=== PATIENT | female | born 1995 | race Hispanic/Latino ===

== ENCOUNTER → 2018-12-12 | Emergency (ER) | payer OTHER, SELFPAY ==
[~2018-12-12] MED LIST: DOCUSATE NA 100 MG CAP PO SCH; FAMOTIDINE 20 MG/2 ML VIAL IV ONE; NA CHLORIDE 0.9% 2,000 ML ONE; PIPER/TAZO/NS 3.375gm 3.375 GM/100 ML BAG ONE; VANCOMYCIN 1 GM/250 ML BAG ONE
--- NOTE | 2018-12-12 11:40 | RAD REPORT ---
EXAM DESCRIPTION: RAD - Chest Single View - 12/12/2018 11:25 am CLINICAL HISTORY: COUGH Chest pain. COMPARISON: CHEST PA AND LAT 2 VIEW dated 09/01/2010 FINDINGS: Portable technique limits examination quality. The lungs are grossly clear. The heart is normal in size. No displaced fractures. IMPRESSION: No acute intrathoracic process suspected.
[2018-12-12 11:58] LABS: Absolute Lymphocytes (CBC) 1.5 K/uL (0.7-4.9); Absolute Monocytes 0.7 K/uL (0.1-1.3); Absolute Neutrophil 6.1 K/uL (1.8-8.0); Basophils % 0.4 % (0-1.3); Eosinophils % 1.2 % (0-4.4); Hematocrit 25.1 % (36.0-45.0); Lymphocytes % 17.8 % (15.3-44.8); MPV 10.9 fL (7.6-11.3); Monocytes % 8.6 % (3.3-12.3); RBC Red Blood Cell Count 2.84 M/uL (3.86-4.86)
[2018-12-12 12:03] LABS: Protime INR 1.08
[2018-12-12 12:17] LABS: ALT/SGPT 21 U/L (12-78); AST/SGOT 19 U/L (15-37); Albumin 2.5 g/dL (3.4-5.0); Alkaline Phosphatase 38 U/L (45-117); BUN Blood Urea Nitrogen 10 mg/dL (7-18); Bicarbonate 25 mmol/L (21-32); Bilirubin Direct 0.2 mg/dL (0-0.2); Bilirubin Total 0.5 mg/dL (0.2-1.0); Glucose Level 92 mg/dL (74-106); Lipase 181 U/L (73-393); Magnesium 1.9 mg/dL (1.8-2.4); NT PRO-BNP 212 pg/mL (<125); Potassium 4.1 mmol/L (3.5-5.1); Protein, Total 5.9 g/dL (6.4-8.2); Sodium Level 142 mmol/L (136-145); Troponin (Emerg Dept Use Only) < 0.02 ng/mL (0.0-0.045)
--- NOTE | 2018-12-12 12:37 | RAD REPORT ---
EXAM DESCRIPTION: CT - Chest Abdomen Pelvis W Cont - 12/12/2018 12:23 pm CLINICAL HISTORY: Chest and abdomen pain. COUGH COMPARISON: Chest Single View dated 12/12/2018; SOFT TISSUE NECK W CONTRAST dated 10/28/2013; CHEST PA AND LAT 2 VIEW dated 09/01/2010 TECHNIQUE: Approximately 100 mL nonionic IV contrast was administered to the patient. All CT scans are performed using dose optimization technique as appropriate and may include automated exposure control or mA/KV adjustment according to patient size. FINDINGS: The lungs are clear.Postsurgical changes are present about the stomach.No pleural or peric ardial effusion.No intrathoracic adenopathy. The liver, spleen, pancreas, adrenal glands and kidneys are within normal limits. No bowel obstruction, free air, free fluid or abscess. Normal appendix. Air in fat stranding seen in the subcutaneous tissues of the abdomen with a drain in place compatible with recent postsurgical sta tus. Postsurgical changes seen involving both rectus abdominus muscles. No pathologic lymphadenopathy in the abdomen or pelvis. A large amount of stool is present in the rectum most compatible with impaction. IMPRESSION: Fecal impaction in the rectum suspected. Postsurgical changes with drain in place involving the subcutaneous an anterior abdominal tissues.
--- NOTE | 2018-12-12 12:53 | ER ---
Nurse's Notes [facility] Name: Arely More Age: 23 yrs Sex: Female : 1995 Arrival Date: 12/12/2018 Time: 10:57 Bed 4 Private MD: Diagnosis: Syncope and collapse-near;Anemia, unspecified-sp abdominoplasty;Constipation Presentation: 12/12 10:50 Presenting complaint: Patient states: had recent tummy tuck/fat transfer to buttocks on iw Thursday, in [place], received a blood transfusion for Hgb of 7, today c/o constipation since the surgery, headache since the surgery, worse today, pt states she had an epidural on Thursday. Transition of care: patient was not received from another setting of care. Onset of symptoms was December 12, 2018. Risk Assessment: Do you want to hurt yourself or someone else? Patient reports no desire to harm self or others. Initial Sepsis Screen: Does the patient meet any 2 criteria? No. Patient's initial sepsis screen is negative. Does the patient have a suspected source of infection? No. Patient's initial sepsis screen is negative. 10:50 Method Of Arrival: EMS: [facility] iw 10:50 Acuity: JEREMY 2 iw 11:11 Care prior to arrival: None. iw Triage Assessment: 17:50 Pain: Also complains of no other associated symptoms. 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 - Social history:: Smoking status: Patient/guardian denies using tobacco. - Family history:: not pertinent. - Ebola Screening: : Patient reports travel to an Ebola-affected area in the 21 days before illness onset. Screenin:46 Abuse screen: Denies threats or abuse. Denies injuries from another. Nutritional iw screening: No deficits noted. Tuberculosis screening: No symptoms or risk factors identified. Fall Risk IV access (20 points). Assessment: 11:28 General: UNABLE TO OBTAIN PIV BY MX NURSES WITH MX ATTEMPTS. MD AWARE AND AT B/S. bp 12:01 General: Appears in no apparent distress. uncomfortable, Behavior is calm, cooperative, jl7 appropriate for age. Pain: Complains of pain in right occipital area Pain does not radiate. Pain currently is 10 out of 10 on a pain scale. Quality of pain is described as throbbing, Pain began 2-3 days ago. Is continuous. Neuro: Level of Consciousness is awake, alert, obeys commands, Oriented to person, place, time. Cardiovascular: Heart tones present Patient's skin is warm and dry. Respiratory: Airway is patent Respiratory effort is even, unlabored, Respiratory pattern is regular, symmetrical, Breath sounds are clear bilaterally. GI: Abdomen is flat, non-distended, Patient currently denies diarrhea, nausea, vomiting. : No signs and/or symptoms were reported regarding the genitourinary system. EENT: No signs and/or symptoms were reported regarding the EENT system. Derm: Skin is dry, Skin is pale, Skin temperature is warm. Musculoskeletal: No signs and/or symptoms reported regarding the musculoskeletal system. 13:00 Reassessment: Patient appears in no apparent distress at this time. Patient and/or jl7 family updated on plan of care and expected duration. Pain level reassessed. Patient is alert/active/playful, equal unlabored respirations, skin warm/dry/pink. 14:53 Reassessment: Pt requesting a stool softner, Dr. Barrow notified, received VO for 100 mg jl7 Colace PO. 17:00 Reassessment: Assisted pt to bathroom, pt reports having a BM at this time. jl7 17:50 Reassessment: discharge instruction written by Dr. Barrow, pt verbalizes understanding, iw pt discharged home, via wheelchair with family, assisted into vehicle with no complications, pt advised to return to Er for worsening symptoms, pt will follow up with PCP this week. Vital Signs: 10:50 BP 61 / 44; Pulse 75; iw 11:01 BP 102 / 50; Pulse 78; Resp 16 S; Pulse Ox 100% on R/A; iw 11:11 BP 95 / 60; Pulse 83; Resp 16 S; Temp 97.8(TE); Pulse Ox 100% ; Weight 85.28 kg; Height iw 5 ft. (152.40 cm); Pain 8/10; 11:45 BP 78 / 43; Pulse 78; Resp 16; Pulse Ox 100% on R/A; iw 11:50 BP 96 / 52; iw 12:30 BP 100 / 52; Pulse 84; Resp 16 S; Pulse Ox 100% on R/A; jl7 13:30 BP 101 / 44; Pulse 74; Resp 16 S; Pulse Ox 100% on R/A; jl7 14:15 BP 100 / 43; Pulse 76; Resp 16 S; Pulse Ox 100% on R/A; jl7 15:00 BP 92 / 42 Supine; Pulse 79; Resp 16 S; Pulse Ox 100% on R/A; jl7 15:03 BP 102 / 59 Sitting; Pulse 86; Resp 16 S; Pulse Ox 100% on R/A; jl7 15:05 BP 101 / 66; Pulse 101; Resp 16 S; Pulse Ox 100% on R/A; jl7 15:45 BP 91 / 42; Pulse 91; Resp 16 S; Pulse Ox 100% on R/A; jl7 11:11 Body Mass Index 36.72 (85.28 kg, 152.40 cm) iw ED Course: 10:57 Patient arrived in ED. iw 10:58 Omi Wong MD is Attending Physician. rudolph 11:02 Charlie Pompa, RN is Primary Nurse. jl7 11:06 Triage completed. iw 11:12 Arm band placed on. iw 11:16 Radiology exam delayed due to lab results not completed at this time. (HCG) mw3 test not completed at this time. 11:26 XRAY Chest (1 view) In Process Unspecified. EDMS 11:45 Inserted saline lock: 20 gauge in left antecubital area, using aseptic technique. Blood iw collected. 12:01 Patient has correct armband on for positive identification. Placed in gown. Bed in low jl7 position. Call light in reach. Side rails up X2. network control technician on. Pulse ox on. NIBP on. Warm blanket given. 12:01 Initial lab(s) drawn, by me, sent to lab. Urine collected: clean catch specimen, jl7 cloudy, EKG done, by ED staff, reviewed by Omi Wong MD. Inserted saline lock: 18 gauge in left EJ, using aseptic technique. ,using aseptic technique. Inserted by Dr. Wong. 12:23 CT completed. Patient tolerated procedure well. Patient moved back from CT. mw3 12:24 CT Chest, Abdomen, Pelvis - W/Contrast: iv only In Process Unspecified. EDDE 12:50 Rachel Barrow MD is Hospitalizing Provider. [facility] 17:50 No provider procedures requiring assistance completed. IV discontinued, intact, iw bleeding controlled, No redness/swelling at site. Pressure dressing applied. Administered Medications: 12:00 Drug: NS 0.9% 1000 ml Route: IV; Rate: 1 bolus; Site: left jugular; jl7 13:00 Follow up: Response: No adverse reaction; IV Status: Completed infusion jl7 12:01 Drug: Pepcid 20 mg Route: IVP; Site: left jugular; jl7 12:30 Follow up: Response: No adverse reaction jl7 12:01 Drug: Zosyn 3.375 grams Route: IVPB; Infused Over: 60 mins; Site: left jugular; jl7 13:00 Follow up: Response: No adverse reaction; IV Status: Completed infusion jl7 12:51 Drug: vancoMYCIN 1 grams Route: IVPB; Infused Over: 2 hrs; Site: left antecubital; jl7 14:51 Follow up: IV Status: Completed infusion jl7 12:51 Drug: NS 0.9% 1000 ml Route: IV; Rate: 1 bolus; Site: right antecubital; jl7 14:00 Follow up: IV Status: Completed infusion jl7 15:30 Drug: Colace 100 mg Route: PO; jl7 16:35 Follow up: Response: No adverse reaction jl Outcome: 12:52 Decision to Hospitalize by Provider. rudolph 18:06 Condition: good iw 18:06 Discharge instructions given to patient, family. 18:06 Discharged to home via wheelchair, with family. iw 18:07 Patient left the ED. Signatures: Dispatcher [employer] EDDE Omi Wong MD MD cha Williams, Irene RN Charlie Rivers RN RN jl7 Massimo Beebe RN RN bp Willis, Michelle mw3 Corrections: (The following items were deleted from the chart) 11:17 11:11 BP 95 / 60; Pulse 83bpm; Resp 16bpm; Spontaneous; Pulse Ox 100%; 85.28 kg; Height iw 5 ft.; BMI: 36.7; Pain 8/10; iw 15:31 Discharged to home ambulatory, with family, iw iw 15: Condition: good iw iw 15: Discharge instructions given to patient, family, Instructed on discharge iw instructions, follow up and referral plans. iw 17:19 16:55 Reassessment: asad jlMati
--- NOTE | 2018-12-12 12:53 | EDPHYS ---
Physician Documentation [facility] Name: Arely More Age: 23 yrs Sex: Female : 1995 Arrival Date: 12/12/2018 Time: 10:57 Bed 4 Private MD: ED Physician Omi Wong HPI: 12/12 11:02 This 23 yrs old Female presents to ER via Unassigned with complaints of rudolph Headache, Dizziness, Post Surgical Pain. 11:02 The patient complains of pain to the right side of the back of head, right occipital rudolph area and right base of the skull. The patient describes the headache as aching. Onset: The symptoms/episode began/occurred 5 day(s) ago. Associated signs and symptoms: The patient has no apparent associated signs or symptoms. Severity of symptoms: At its worst the pain was moderate, in the emergency department the pain is unchanged. Headache History: Denies prior headaches. The symptoms are alleviated by remaining still, the symptoms are aggravated by standing. The patient has not experienced similar symptoms in the past. 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 - Social history:: Smoking status: Patient/guardian denies using tobacco. - Family history:: not pertinent. - Ebola Screening: : Patient reports travel to an Ebola-affected area in the 21 days before illness onset. ROS: 11:02 Respiratory: Negative for shortness of breath, cough, wheezing, and pleuritic chest rudolph pain, Back: Negative for injury and pain. 11:02 Constitutional: Positive for body aches, fatigue, malaise, poor PO intake. 11:02 Eyes: Positive for pale. 11:02 ENT: Positive for 11:02 Cardiovascular: Positive for palpitations. 11:02 Respiratory: Positive for shortness of breath. 11:02 Skin: Positive for pallor. 11:02 Neuro: Positive for weakness. Exam: 11:02 Head/Face: Normocephalic, atraumatic. ENT: Nares patent. No nasal discharge, no rudolph septal abnormalities noted. Tympanic membranes are normal and external auditory canals are clear. Oropharynx with no redness, swelling, or masses, exudates, or evidence of obstruction, uvula midline. Mucous membranes moist. Neck: Trachea midline, no thyromegaly or masses palpated, and no cervical lymphadenopathy. Supple, full range of motion without nuchal rigidity, or vertebral point tenderness. No Meningismus. Chest/axilla: Normal chest wall appearance and motion. Nontender with no deformity. No lesions are appreciated. Respiratory: Lungs have equal breath sounds bilaterally, clear to auscultation and percussion. No rales, rhonchi or wheezes noted. No increased work of breathing, no retractions or nasal flaring. Back: No spinal tenderness. No costovertebral tenderness. Full range of motion. MS/ Extremity: Pulses equal, no cyanosis. Neurovascular intact. Full, normal range of motion. Neuro: Awake and alert, GCS 15, oriented to person, place, time, and situation. Cranial nerves II-XII grossly intact. Motor strength 5/5 in all extremities. Sensory grossly intact. Cerebellar exam normal. Normal gait. Psych: Awake, alert, with orientation to person, place and time. Behavior, mood, and affect are within normal limits. 11:02 Constitutional: The patient appears lethargic. 11:02 Eyes: Conjunctiva: pale. Vital Signs: 10:50 BP 61 / 44; Pulse 75; iw 11:01 BP 102 / 50; Pulse 78; Resp 16 S; Pulse Ox 100% on R/A; iw 11:11 BP 95 / 60; Pulse 83; Resp 16 S; Temp 97.8(TE); Pulse Ox 100% ; Weight 85.28 kg; Height iw 5 ft. (152.40 cm); Pain 8/10; 11:45 BP 78 / 43; Pulse 78; Resp 16; Pulse Ox 100% on R/A; iw 11:50 BP 96 / 52; iw 12:30 BP 100 / 52; Pulse 84; Resp 16 S; Pulse Ox 100% on R/A; jl7 13:30 BP 101 / 44; Pulse 74; Resp 16 S; Pulse Ox 100% on R/A; jl7 14:15 BP 100 / 43; Pulse 76; Resp 16 S; Pulse Ox 100% on R/A; jl7 15:00 BP 92 / 42 Supine; Pulse 79; Resp 16 S; Pulse Ox 100% on R/A; jl7 15:03 BP 102 / 59 Sitting; Pulse 86; Resp 16 S; Pulse Ox 100% on R/A; jl7 15:05 BP 101 / 66; Pulse 101; Resp 16 S; Pulse Ox 100% on R/A; jl7 15:45 BP 91 / 42; Pulse 91; Resp 16 S; Pulse Ox 100% on R/A; jl7 11:11 Body Mass Index 36.72 (85.28 kg, 152.40 cm) iw Procedures: 12:43 Peripheral line: by aseptic technique a peripheral line was placed in the left external rudolph jugular vein. MDM: 10:58 Patient medically screened. [facility] 11:02 Data reviewed: vital signs, nurses notes, lab test result(s), EKG, radiologic studies, [facility] CT scan, plain films. 12/12 11:02 Order name: Basic Metabolic Panel; Complete Time: 12:29 [facility] 12/12 11:02 Order name: CBC with Diff; Complete Time: 12:29 [facility] 12/12 11:02 Order name: LFT's; Complete Time: 12:29 [facility] 12/12 11:02 Order name: Magnesium; Complete Time: 12:29 [facility] 12/12 11:02 Order name: NT PRO-BNP; Complete Time: 12:29 [facility] 12/12 11:02 Order name: PT-INR; Complete Time: 12:29 [facility] 12/12 11:02 Order name: Troponin (emerg Dept Use Only); Complete Time: 12:29 [facility] 12/12 11:02 Order name: Lipase; Complete Time: 12:29 [facility] 12/12 11:02 Order name: Type And Screen; Complete Time: 15:54 [facility] 12/12 11:02 Order name: Urine Culture [facility] 12/12 11:02 Order name: Blood Culture Adult (2) [facility] 12/12 11:02 Order name: Procalcitonin; Complete Time: 15:54 [facility] 12/12 11:02 Order name: Lactate; Complete Time: 12:29 [facility] 12/12 12:03 Order name: Urine Dipstick--Ancillary (enter results); Complete Time: 15:54 02/03 11:02 Order name: XRAY Chest (1 view); Complete Time: 12:00 rudolph 12/12 11:02 Order name: EKG; Complete Time: 11:04 rudolph 12/12 11:02 Order name: Cardiac monitoring; Complete Time: 11:18 rudolph 12/12 11:02 Order name: EKG - Nurse/Tech; Complete Time: 11:52 rudolph 12/12 11:02 Order name: IV Saline Lock; Complete Time: 11:52 rudolph 12/12 11:02 Order name: CT Chest, Abdomen, Pelvis - W/Contrast: iv only; Complete Time: 12:41 rudolph 12/12 12:03 Order name: Urine --Ancillary (enter results); Complete Time: 15:54 eb 12/12 13:22 Order name: Bb Add On eb 12/12 17:16 Order name: CBC with Diff [facility] 12/12 18:07 Order name: CBC Smear Scan EDMS 12/12 11:02 Order name: Labs collected and sent; Complete Time: 11:52 [facility] 12/12 11:02 Order name: O2 Per Protocol; Complete Time: 11:18 rudolph 12/12 11:02 Order name: O2 Sat Monitoring; Complete Time: 11:18 [facility] 12/12 11:02 Order name: Urine Dipstick-Ancillary (obtain specimen); Complete Time: 12:01 [facility] 12/12 11:02 Order name: Urine Test (obtain specimen); Complete Time: 12:01 [facility] 12/12 11:02 Order name: IV Saline Lock - Large Bore; Complete Time: 11:52 [facility] Administered Medications: 12:00 Drug: NS 0.9% 1000 ml Route: IV; Rate: 1 bolus; Site: left jugular; jl7 13:00 Follow up: Response: No adverse reaction; IV Status: Completed infusion jl7 12:01 Drug: Pepcid 20 mg Route: IVP; Site: left jugular; jl7 12:30 Follow up: Response: No adverse reaction jl7 12:01 Drug: Zosyn 3.375 grams Route: IVPB; Infused Over: 60 mins; Site: left jugular; jl7 13:00 Follow up: Response: No adverse reaction; IV Status: Completed infusion jl7 12:51 Drug: vancoMYCIN 1 grams Route: IVPB; Infused Over: 2 hrs; Site: left antecubital; jl7 14:51 Follow up: IV Status: Completed infusion jl7 12:51 Drug: NS 0.9% 1000 ml Route: IV; Rate: 1 bolus; Site: right antecubital; jl7 14:00 Follow up: IV Status: Completed infusion 7 15:30 Drug: Colace 100 mg Route: PO; 7 16:35 Follow up: Response: No adverse reaction jl7 Disposition: 12/12/18 12:52 Hospitalization ordered by Rachel Barrow for Inpatient Admission. Preliminary diagnosis are Syncope and collapse - near, Anemia, unspecified - sp abdominoplasty, Constipation. - Bed requested for Telemetry/MedSurg (Inpatient). - Status is Inpatient Admission. iw - Condition is Fair. - Problem is new. - Symptoms have improved. UTI on Admission? No Signatures: Dispatcher [employer] EDMS Omi Wong MD MD cha Williams, Irene, RN RN iw Charlie Pompa RN RN jl7 Corrections: (The following items were deleted from the chart) 18:07 12:52 Hospitalization Ordered by Rachel Barrow MD for Inpatient Admission. Preliminary iw diagnosis is Syncope and collapse - near; Anemia, unspecified - sp abdominoplasty; Constipation. Bed requested for Telemetry/MedSurg (Inpatient). Status is Inpatient Admission. Condition is Fair. Problem is new. Symptoms have improved. UTI on Admission? No. rudolph
[2018-12-12 14:27] LABS: Urine Blood NEGATIVE (NEG); Urine Glucose NEGATIVE (NEG); Urine Protein NEGATIVE (NEG); Urine Specific Gravity 1.015 (1.005-1.030); Urine pH 7.5 (5.0-7.0)
--- NOTE | 2018-12-12 16:18 | P.CNS ---
History of Present Illness: This is a 23-year-old female with no significant past medical history who presented to the ED complaining of having headache along with dizziness that started this morning. Patient had tummy tuck done in [place] last week on Thursday and after the surgery she had to have blood transfusion because of her hemoglobin being 7. She was transfused 1 unit of blood at that time. Patient came to the ER today after she episode of presyncopal while she was on the toilet straining for bowel movement. Patient stated that she has been constipated for past couple of days ever since her surgery and has been having hard time passing the bowel and thus has to strain a lot. Patient decided to come to the ER to get her headache and presyncopal episode checked out. In the ER patient was initially found to be hypotensive however she recovered after fluids. Lab work and imaging was done which was negative for any acute abnormality except fecal impaction. When I evaluated the patient at bedside along with general surgery patient was doing well no headaches and no hypertension was noted. Patient was still orthostatic hypotension as well. Patient hemoglobin at this time was 8.6 which is appropriate after 1 unit of transfusion. Allergies NKDA Allergy (Uncoded 09/25/15 17:32) Unknown No Known Allergies Allergy (Uncoded 12/05/16 00:27) Unknown Review of Systems 10-point ROS is otherwise unremarkable Physical Examination General: Alert, In no apparent distress HEENT: Atraumatic, PERRLA, Mucous membr. moist/pink, EOMI, Sclerae nonicteric Neck: Supple, 2+ carotid pulse no bruit, No LAD, Without JVD or thyroid abnormality Respiratory: Clear to auscultation bilaterally, Normal air movement Cardiovascular: Regular rate/rhythm, Normal S1 S2 Gastrointestinal: Normal bowel sounds, No tenderness, Other (Drain and place after tummy tuck) Musculoskeletal: No tenderness Integumentary: No rashes Neurological: Normal gait, Normal speech, Normal tone, Normal affect Lymphatics: No axilla or inguinal lymphadenopathy Laboratory Data (last 24 hrs) 12/12/18 11:30: PT 12.8 H, INR 1.08 12/12/18 11:30: WBC 8.4, Hgb 8.4 L, Hct 25.1 L, Plt Count 230 12/12/18 11:30: Sodium 142, Potassium 4.1, BUN 10, Creatinine 0.50 L, Glucose 92 , Magnesium 1.9, Total Bilirubin 0.5, AST 19, ALT 21, Alkaline Phosphatase 38 L , Lipase 181 - Problems (1) Dehydration Current Visit: Yes Status: Acute (2) Pre-syncope Current Visit: Yes Status: Acute (3) Status post abdominoplasty Current Visit: Yes Status: Acute Conclusions/Impression: 23-year-old female with no significant past medical history who was referred to medicine team for admission for presyncopal episode. Patient after being evaluated by the ER physician was referred for medicine team for admission for her syncopal workup along with surgery consult for surgical evaluation for her abdominal plasty. Patient when seen in the ER with general surgery patient was doing well . Dated and her headache had resolved. Vital signs had been stabilized she was no longer hypotensive. Patient stated that her blood pressure usually runs normally at about 100/60 at home. Patient also stated that she has not had any abdominal pain nausea vomiting or any other associated symptoms. Patient most likely had a vasovagal episode after straining to have a bowel movement. Patient thus was educated extensively on taking stool softener encouraging fluids to avoid dehydration. Patient demonstrated understanding and stated that she has a follow up appointment with her RN tomorrow morning with the plastic surgery for drain removal. Patient was asked to keep her appointment with the plastic surgeon along with primary care doctor. No further complaints were offered. This patient was discharged from the ER per general surgery recommendation.
[2018-12-12 17:55] LABS: Absolute Lymphocytes (CBC) 1.2 K/uL (0.7-4.9); Absolute Monocytes 0.5 K/uL (0.1-1.3); Absolute Neutrophil 6.7 K/uL (1.8-8.0); Basophils % 0.3 % (0-1.3); Hematocrit 22.6 % (36.0-45.0); Lymphocytes % 14.3 % (15.3-44.8); MPV 10.7 fL (7.6-11.3); Monocytes % 6.1 % (3.3-12.3); RBC Red Blood Cell Count 2.56 M/uL (3.86-4.86)
[2018-12-12 18:35] LABS: Blood Morphology Comment NOT SEEN (NOT SEEN); Platelet Estimate ADEQ; Urine White Blood Cell Casts OK
--- NOTE | 2018-12-12 20:32 | CON ---
Date of Consultation: 12/12/2018 Reason For Consultation: Syncopal episode and constipation. Brief History Of Present Illness: The patient is a 23-year-old female who recently had surg sheyla in [place] for cosmetic surgery reasons. She had an abdominoplasty and fat transfer to the buttoc k area. She has [address] and was having some trouble with constipation. She has been takin g her pain medication as prescribed and noted that she had not had a bowel movement 6 days. She had been straining on the toilet today earlier and noted that she passed out at that time. She has been having decreased p.o. intake as well somewhat but not significantly changed from previous. She has h ad no prior episodes of this and she was by report given 1 unit of packed red blood cells in [place] w hen her hemoglobin dropped to 7 and came up to 8 on our check; however, she did not have a recheck in [place] by her report. She simply received 1 here with a hemoglobin of 7. She additionally stated t hat she has anemia preexisting and blood pressure which sits below and in the low 100 range normally. Past Medical History: Significant for anemia. Past Surgical History: As above. She had a and gastric sleeve as well. Allergies: NO KNOWN DRUG ALLERGIES. Medications: Include Toradol, Levaquin, citalopram. Social History: She denies smoking or recreational drug use. Physical Examination: Vital Signs: At the time of my examination, her vital signs were stable. She had a heart rate that was approximately 100, blood pressure was 102/78, respiratory rate was 18. General: She was awake, alert, and oriented. Psychiatric: She was appropriate, conversive. HEENT: She was normocephalic. Her sclerae were anicteric. Her mucous membranes were moist. Her or opharynx was clear. Abdomen: Soft. There were recent surgical scars. Pulmonary: Clear to auscultation bilaterally. Cardiovascular: No edema and she had sinus tachycardia, otherwise regular rhythm. Extremities: No clubbing, cyanosis, or edema. [place] drains were in place x2, 1 in the buttock area, 1 in the flank area from her surgical areas. Laboratory Data: She had a laboratory exam, which revealed a white blood cell count of 8.4, hemoglob in is 8.4, hematocrit 25.1, platelet count is 230. Her PT 12.8, INR 1.08. Sodium 142, potassium 4.1 , chloride 112, carbon dioxide 25, BUN 10, creatinine 0.5, glucose 92, lactic acid 1.5, calcium 8.0, magnesium 1.9, total bilirubin 0.5, direct component 0.2, AST 19, ALT 21, alkaline phosphatase of 38, lipase is 181. Procalcitonin less than 0.05. UA was essentially negative and urine test also negative. She had a CT scan of the chest, abdomen, and pelvis, which is officially read as feca l impaction in the rectum, suspected postsurgical changes with drain in place involving subcutaneous anterior abdominal tissues. She additionally had a chest x-ray performed, which was officially read as no acute intrathoracic process. Assessment And Plan: This is a 23-year-old female who came in with a syncopal episode, likely vasova gal episode and hypotension on admission. Currently, she states she has no pain or symptoms of any k ind. She had a mild headache on admission, but that has since resolved. She has no additional compl aints at this time and has been ambulatory and passing urine but has not had a bowel movement. She h as had no abdominal tenderness however and no abdominal pain. As such, I do not find this patient re quires surgical intervention at this time and as such, she can be discharged from a surgical standpoi nt with instructions to follow up with her primary medical doctor this next week for her continued an emia issues. I have explained the risks, benefits, alternatives of the above-stated plan. The patie nt agrees to proceed as indicated. Thank you for this interesting consult. EMERSON/STEVEN Voice ID: [id number] Report ID: [id number]
--- NOTE | 2018-12-13 07:24 | EKG ---
Test Date: 2018-12-12 Test Time: 11:47:18 Eye Glass Frame Polisher: ELIZABETH MEASUREMENT RESULTS: Intervals: Rate: 73 PA: 162 QRSD: 80 QT: 374 QTc: 412 [place]: P: 48 PA: 162 QRS: 9 T: -10 INTERPRETIVE STATEMENTS: Normal sinus rhythm Nonspecific T wave abnormality Abnormal ECG Compared to ECG 01/08/2017 08:30:30 T-wave abnormality now present Sinus arrhythmia no longer present Electronically Signed On 12-13-18 07:19:33 PHLEBOTOMY PROGRAM COORDINATOR by Te Morrell
== END ==
LOC: ER 10:45
PROC: 05HQ33Z Insertion of Infusion Device into Left External Jugular Vein, Percutaneous Approach (ICD-10-PCS; principal; 2018-12-12)
DX: D64.9 Anemia, unspecified (principal); K59.00 Constipation, unspecified; Z98.890 Other specified postprocedural states; E86.0 Dehydration
CPT/HCPCS: 36415; 71045; 71260; 74177; 80048; 80076; 81003; 81025; 83605; 83690; 83735; 83880; 84145; 84484; 85025; 85610; 86850; 86900; 86901; 87040; 87086; 87088; 93005; 99285; J2543; J3370; J7030; Q9967